=== PATIENT | male | born 1985 | race Asian ===

== ENCOUNTER 2017-08-08 00:20 | Emergency (ER) | payer OTHER ==
[2017-08-08 00:40] VITALS: BP 131/88; PULSE 128; TEMP 97.8; BMI 66.9
[2017-08-08] MEDS ORDERED: SODIUM CHLORIDE 0.9% 1000 ML INFUS.BAG IV ONE (01:18)
--- NOTE | 2017-08-08 01:23 | PDOC ---
History of Present Illness - General History Source: Patient Exam Limitations: No Limitations - History of Present Illness Initial Comments: 08/08/17 01:32 The patient is a 31 year old male with history of asthma, cigarette smoking, who presents to the ED complaining of palpitations that began the night of ED arrival. He reports he has been drinking alcohol and snorting cocaine through the weekend. He admits to snorting cocaine prior to the onset of his symptoms. He reports his palpitations are resolving on ED evalulation. No chest pain or shortness of breath. No headache, visual changes, or numbness/tingling. <Eym Bishop - Last Filed: 08/08/17 01:32> <Bushra Eugene - Last Filed: 08/08/17 05:52> - General Chief Complaint: Palpitations Stated Complaint: ELEVATED HEARTRATE Time Seen by Provider: 08/08/17 00:40 Past History <Emy Bishop - Last Filed: 08/08/17 01:32> - Past Medical History Asthma: Yes COPD: No - Suicide/Smoking/Psychosocial Hx Smoking History: Current every day smoker Number of Cigarettes Smoked Daily: 20 Information on smoking cessation initiated: No Drug/Substance Use Hx: Yes <Bushra Eugene - Last Filed: 08/08/17 05:52> - Past Medical History Allergies/Adverse Reactions: Allergies Allergy/AdvReac Type Severity Reaction Status Date / Time No Known Allergies Allergy Verified 08/08/17 00:31 Home Medications: Ambulatory Orders NK [No Known Home Medication] 08/08/17 Review of Systems - Review of Systems Able to Perform ROS?: Yes Comments:: 08/08/17 01:35 GENERAL/CONSTITUTIONAL: No fever or chills. No weakness. HEAD, EYES, EARS, NOSE AND THROAT: No change in vision. No ear pain or discharge. No sore throat. CARDIOVASCULAR: +Palpitations (resolving). No chest pain or shortness of breath. No peripheral edema. RESPIRATORY: No cough, wheezing, or hemoptysis. GASTROINTESTINAL: No nausea, vomiting, diarrhea or constipation. GENITOURINARY: No dysuria, frequency, or change in urination. MUSCULOSKELETAL: No joint or muscle swelling or pain. No neck or back pain. SKIN: No rash NEUROLOGIC: No headache, vertigo, loss of consciousness, or change in strength/ sensation. ENDOCRINE: No increased thirst. No abnormal weight change. HEMATOLOGIC/LYMPHATIC: No anemia, easy bleeding, or history of blood clots. ALLERGIC/IMMUNOLOGIC: No hives or skin allergy. <Emy Bishop - Last Filed: 08/08/17 01:32> *Physical Exam - Vital Signs Last Vital Signs Temp Pulse Resp BP Pulse Ox 97.8 F 128 H 20 131/88 99 08/08/17 00:28 08/08/17 00:28 08/08/17 00:28 08/08/17 00:28 08/08/17 00:28 - Physical Exam Comments: 08/08/17 01:36 GENERAL: Awake, alert, and fully oriented, in no acute distress HEAD: No signs of trauma EYES: PERRLA, EOMI, sclera anicteric, conjunctiva clear ENT: Auricles normal inspection, hearing grossly normal, nares patent, oropharynx clear without exudates. Moist mucosa NECK: Normal ROM, supple, no lymphadenopathy, JVD, or masses LUNGS: +B/l wheezing. HEART: Regular rate and rhythm, normal S1 and S2, no murmurs, rubs or gallops ABDOMEN: Soft, nontender, normoactive bowel sounds. No guarding, no rebound. No masses EXTREMITIES: Normal range of motion, no edema. No clubbing or cyanosis. No cords, erythema, or tenderness NEUROLOGICAL: Cranial nerves II through XII grossly intact. Normal speech, normal gait SKIN: Warm, Dry, normal turgor, no rashes or lesions noted. <Emy Bishop - Last Filed: 08/08/17 01:32> - Vital Signs Last Vital Signs Temp Pulse Resp BP Pulse Ox 97.8 F 128 H 20 131/88 99 08/08/17 00:28 08/08/17 00:28 08/08/17 00:28 08/08/17 00:28 08/08/17 00:28 <Bushra Eugene - Last Filed: 08/08/17 05:52> ED Treatment Course - LABORATORY CBC & Chemistry Diagram: 08/08/17 02:12 08/08/17 02:12 <Bushra Eugene - Last Filed: 08/08/17 05:52> Medical Decision Making - Medical Decision Making 08/08/17 05:51 Pt comes with a funny feling in his chest. For the last 2 days he has been partying with friends, drinking alcohol and snorting cocaine. he stated thast he has only done this twice in his life, and he is neither alcoholic nor drug user. Pt states that he has no chest pain and that he called his dad and asked him to drive him to the ER so he could be checked out. Pt was hydrated in the ER. EKG is normal. Vitals normal. He has normal labs and he will be discharged home. <Bushra Eugene - Last Filed: 08/08/17 05:52> *DC/Admit/Observation/Transfer - Attestations Scribe Attestion: 08/08/17 01:36 Documentation prepared by Emy Bishop, acting as medical record transcriber for Bushra Eugene MD. <Emy Bishop - Last Filed: 08/08/17 01:32> - Discharge Dispostion Admit: No <Bushra Eugene - Last Filed: 08/08/17 05:52> Diagnosis at time of Disposition: Cocaine abuse, Alcohol abuse - Discharge Dispostion Disposition: HOME Condition at time of disposition: Stable - Referrals Referrals: Domingo Watkins MD [Primary Care Provider] - - Patient Instructions Printed Discharge Instructions: Drug Abuse and Drug Addiction - Post Discharge Activity
[2017-08-08] MEDS ORDERED: ALBUTEROL SO4 2.5/IPRATROPIUM 0.5 INH SOL 3 ML VIAL.NEB. NEB ONE ×2 (01:38→01:59)
[2017-08-08 02:55] LABS: ALBUMIN 4.6 g/dl (3.4-5.0); ANION GAP 11 (8-16); CALCIUM 8.7 mg/dL (8.5-10.1); CO2 27 mmol/L (21-32); CREATININE 0.7 mg/dL (0.7-1.3); GLUCOSE,RANDOM 126 mg/dL (74-106); SGOT/AST 21 U/L (15-37); SGPT/ALT 70 U/L (12-78); TOT PROT 8.6 g/dl (6.4-8.2)
[2017-08-08 02:57] LABS: ALK PHOS 78 U/L (45-117); CPK 194 IU/L (39-308); TROPONIN I < 0.02 ng/ml (0.00-0.05)
[2017-08-08 02:59] LABS: INR 1.13 (0.82-1.09); PROTHROMBIN TIME (PATIENT) 12.8 SEC (9.98-11.88)
--- NOTE | 2017-08-19 10:17 | EKG ---
Test Reason : Blood Pressure : / mmHG Vent. Rate : 094 BPM Atrial Rate : 094 BPM P-R Int : 118 ms QRS Dur : 086 ms QT Int : 364 ms P-R-T Axes : 035 049 046 degrees QTc Int : 455 ms NORMAL SINUS RHYTHM NORMAL ECG NO PREVIOUS ECGS AVAILABLE Confirmed by SYD WADSWORTH, AURA ([id number]) on 08/19/2017 10:17:13 AM Referred By: Confirmed By:AURA VELARDE MD
== END 2017-08-08 03:38 | disposition home or self-care (01) ==
LOC: JER 00:20
PROC: 3E0F7GC Introduction of Other Therapeutic Substance into Respiratory Tract, Via Natural or Artificial Opening (ICD-10-PCS; principal; 2017-08-08)
DX: F14.10 Cocaine abuse, uncomplicated (principal); F10.10 Alcohol abuse, uncomplicated; R00.2 Palpitations; J45.909 Unspecified asthma, uncomplicated; F17.210 Nicotine dependence, cigarettes, uncomplicated
CPT/HCPCS: 36415; 71020-TC; 80053; 80307; 82550; 82553; 84484; 85610; 85730; 93005; 93010; 94640; 99282-25

== ENCOUNTER 2017-10-10 10:29 | Emergency (ER) | payer OTHER ==
[2017-10-10] MEDS ORDERED: ACETAMINOPHEN 325 MG TABLET (FP) PO ONE (10:38)
[2017-10-10 10:47] VITALS: BP 143/87; PULSE 120; TEMP 101; BMI 30.7
[2017-10-10] MEDS ORDERED: ALBUTEROL SO4 2.5/IPRATROPIUM 0.5 INH SOL 3 ML VIAL.NEB. NEB ONE ×2 (11:32→11:33)
--- NOTE | 2017-10-10 11:54 | PDOC ---
History of Present Illness - General Chief Complaint: Cold Symptoms Stated Complaint: FEVER, COUGH Time Seen by Provider: 10/10/17 11:13 - History of Present Illness Initial Comments: 10/10/17 11:32 CHIEF COMPLAINT: fever and cough HISTORY OF PRESENT ILLNESS: 32 yo M with hx of asthma presents to [facility] with fever and cough since 2 days ago. Patient states "it's kind of making my asthma act up again but I'm using my inhaler so it's not terrible." Patient reports body aches and fatigue, denies vomiting and diarrhea. PAST MEDICAL HISTORY: Denies past medical history FAMILY HISTORY: Denies SOCIAL HISTORY: Denies tobacco, alcohol, illicit drug use. SURGICAL HISTORY: Denies ALLERGIES: No known drug allergies REVIEW OF SYSTEMS General/Constitutional: Fever, fatigue. Denies weakness, weight change. HEENT: Denies change in vision. Denies ear pain or discharge. Denies sore throat. Cardiovascular: Denies chest pain or shortness of breath. Respiratory: Cough and wheezing. Gastrointestinal: Denies nausea, vomiting, diarrhea. Genitourinary: Denies dysuria, frequency, or change in urination. Musculoskeletal: Denies joint or muscle swelling or pain. Denies neck or back pain. Skin and breasts: Denies rash or easy bruising. PHYSICAL EXAM General Appearance: Well-appearing, appropriately dressed. No apparent distress. HEENT: Rhinorrhea, congestion, post nasal drip. EOMI, PERRLA, normal voice, TMs melissa. No conjunctival pallor. No photophobia, scleral icterus. Neck: Supple. Trachea midline. No tenderness, rigidity, carotid bruit, stridor , lymphadenopathy, or thyromegaly. Respiratory/Chest: Bilateral inspiratory and expiratory wheezing. No shortness of breath, chest tenderness, respiratory distress, accessory muscle use. No crackles, rales, rhonchi, stridor, dullness. Cardiovascular: RRR. S1, S2. Gastrointestinal/Abdominal: Normal bowel sounds. Abdomen soft, non-distended. No tenderness or rebound tenderness. No organomegaly, pulsatile mass, guarding , hernia, hepatomegaly, splenomegaly. Musculoskeletal/Extremities: Normal inspection. FROM of all extremities, normal capillary refill. Pelvis Stable. No CVA tenderness. No tenderness to extremities, pedal edema, swelling, erythema or deformity. Integumentary: Appropriate color, dry, warm. 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 Fully oriented, alert. Appropriate mood/affect. Motor strength 5/5. No appreciable EOM palsy, facial droop or sensory deficit. 10/10/17 11:56 Past History - Past Medical History Allergies/Adverse Reactions: Allergies Allergy/AdvReac Type Severity Reaction Status Date / Time No Known Allergies Allergy Verified 10/10/17 10:37 Home Medications: Ambulatory Orders Oseltamivir Phosphate [Tamiflu] 75 mg PO BID #10 capsule 10/10/17 Asthma: Yes COPD: No - Suicide/Smoking/Psychosocial Hx Smoking History: Current every day smoker Number of Cigarettes Smoked Daily: 5 Information on smoking cessation initiated: Yes 'Breaking Loose' booklet given: 10/10/17 Hx Alcohol Use: Yes (SOCIAL) Drug/Substance Use Hx: No Substance Use Type: None *Physical Exam - Vital Signs Last Vital Signs Temp Pulse Resp BP Pulse Ox 101.0 F H 120 H 20 143/87 97 10/10/17 10:33 10/10/17 10:33 10/10/17 10:33 10/10/17 10:33 10/10/17 10:33 ED Treatment Course - Medications Given in the ED: ED Medications Discontinued Medications Generic Name Dose Route Start Last Admin Trade Name Marcell PRN Reason Stop Dose Admin Acetaminophen 650 mg 10/10/17 10:38 10/10/17 10:38 Tylenol - PO 10/10/17 10:39 650 mg NOW ONE Administration Medical Decision Making - Medical Decision Making 10/10/17 11:58 32 yo M with hx of asthma presents to [facility] with fever and cough since 2 days ago. -Duoneb -Flu swab 10/10/17 12:12 Patient reassessed, lungs CTAB at this time and patient reports feeling much better. Given symptoms, VS, hx of asthma and prevalence of flu, will rx Tamiflu. Advised patient to take medication as prescribed and follow up with PCP next week. Advised patient of signs and symptoms for return to ED. Patient verbalized understanding and agrees to plan. *DC/Admit/Observation/Transfer Diagnosis at time of Disposition: Flu - Discharge Dispostion Disposition: HOME Condition at time of disposition: Stable Admit: No - Prescriptions Prescriptions: Oseltamivir Phosphate [Tamiflu] 75 mg PO BID #10 capsule - Referrals Referrals: Domingo Watkins MD [Primary Care Provider] - - Patient Instructions Printed Discharge Instructions: Influenza Additional Instructions: Please take medications as prescribed. Take Motrin 3x a day as needed for flu/ bodyaches/fatigue. If you develop any severe shortness of breath unrelieved by your inhaler, chest pain, fever unrelieved by Motrin or Tylenol, persistent vomiting or diarrhea, or any new or worsening symptoms, please return to the ER. - Post Discharge Activity
== END 2017-10-10 12:34 | disposition home or self-care (01) ==
LOC: JER 10:29 → JERFT 10:29
PROC: 3E0F7GC Introduction of Other Therapeutic Substance into Respiratory Tract, Via Natural or Artificial Opening (ICD-10-PCS; principal; 2017-10-10)
DX: J11.1 Influenza due to unidentified influenza virus with other respiratory manifestations (principal); J45.909 Unspecified asthma, uncomplicated
CPT/HCPCS: 87804; 94640; 99281-25

== ENCOUNTER 2017-11-06 23:07 | Emergency (ER) | payer OTHER ==
[2017-11-06 23:30] VITALS: BP 135/93; TEMP 100.1; BMI 32.5
[2017-11-07] MEDS ORDERED: IBUPROFEN 400 MG TABLET (FP) PO ONE ×2 (00:07→00:12)
[2017-11-07] MEDS ORDERED: ALBUTEROL SO4 0.083% IH SOL 2.5 MG/3 ML VIAL.NEB. NEB ONE ×2 (00:07→00:12)
--- NOTE | 2017-11-07 00:13 | PDOC ---
History of Present Illness <Sotero Brandt - Last Filed: 11/07/17 00:57> - General History Source: Patient Exam Limitations: No Limitations - History of Present Illness Initial Comments: 11/07/17 07:05 Patient is a 32 year old male with a significant past medical history of Asthma , who presents to the ED with complaints of flu like symptoms that began yesterday. Patient reports experiencing sudden onset of flu like symptoms yesterday afternoon. He reports experiencing subjective fever, general body aches and slight cough. Patient reports having no sick contacts at home but states all of his coworkers are showing flu like symptoms. Patient reports experiencing similar symptoms 3 weeks ago and was tested negative for flu but was given Tamiflu and states his symptoms relieved in 2 days. He reports taking tylenol and motrin with no relief. Denies chest pain. Sob. Denies nausea, vomiting. Denies abdominal pain, constipation, diarrhea. Denies dysuria, hematuria. Denies any other symptoms. Allergies: None Social history: Former smoker. No alcohol. No illicit drugs. Surgical history: None PMD: Dr. Domingo Watkins <Deandre Ruiz - Last Filed: 11/07/17 07:06> - General Chief Complaint: Cold Symptoms Stated Complaint: COLD SYMPTOMS Time Seen by Provider: 11/06/17 23:47 Past History - Past Medical History Asthma: Yes COPD: No - Suicide/Smoking/Psychosocial Hx Smoking History: Never smoked Have you smoked in the past 12 months: No Number of Cigarettes Smoked Daily: 20 Information on smoking cessation initiated: No 'Breaking Loose' booklet given: 10/10/17 Hx Alcohol Use: No Drug/Substance Use Hx: No Substance Use Type: None <Sotero Brandt - Last Filed: 11/07/17 00:57> <Deandre Ruiz - Last Filed: 11/07/17 07:06> - Past Medical History Allergies/Adverse Reactions: Allergies Allergy/AdvReac Type Severity Reaction Status Date / Time No Known Allergies Allergy Verified 11/06/17 23:28 Review of Systems - Review of Systems Able to Perform ROS?: Yes Comments:: 11/07/17 07:06 CONSTITUTIONAL: +Fever. +General body aches. No reported: Chills, Diaphoresis, Generalized Weakness, Malaise, Loss of Appetite HEENT: No reported: Rhinorrhea, Nasal Congestion, Throat Pain, Throat Swelling, Difficulty Swallowing, Mouth Swelling, Ear Pain, Eye Pain, Visual Changes CARDIOVASCULAR: No reported: Chest Pain, Syncope, Palpitations, Irregular Heart Rate, Lightheadedness, Peripheral Edema RESPIRATORY: +Cough No reported: Cough, Shortness of Breath, SOB with Exertion, Orthopnea, Wheezing , Stridor, Hemoptysis GASTROINTESTINAL: +Abdominal pain. No reported: Abdominal Distension, Nausea, Vomiting, Diarrhea, Constipation, Melena, Hematochezia GENITOURINARY: No reported: Dysuria, Frequency, Urgency, Hesitancy, Flank Pain, Genital Pain MUSCULOSKELETAL: No reported: Myalgia, Arthralgia, Joint Swelling, Back pain, Neck Pain SKIN: No reported: Rash, Itching, Pallor HEMATOLOGIC/IMMUNOLOGIC: No reported: Easy Bleeding, Easy Bruising, Lymphadenopathy, Frequent infections ENDOCRINE: No reported: Unexplained Weight Gain, Unexplained Weight Loss, Heat Intolerance , Cold Intolerance NEUROLOGIC: No reported: Headache, Focal Weakness, Paresthesias, Vertigo, Lightheadedness, Unsteady Gait, Seizure, Mental Status Changes, Incontinence PSYCHIATRIC: No reported: Anxiety, Depression <Deandre Ruiz - Last Filed: 11/07/17 07:06> *Physical Exam - Vital Signs Last Vital Signs Temp Pulse Resp BP Pulse Ox 100.1 F H 125 H 20 135/93 97 11/06/17 23:28 11/06/17 23:28 11/06/17 23:28 11/06/17 23:28 11/06/17 23:28 <Sotero Brandt - Last Filed: 11/07/17 00:57> - Vital Signs Last Vital Signs Temp Pulse Resp BP Pulse Ox 100.1 F H 103 H 18 135/93 97 11/06/17 23:28 11/07/17 00:58 11/07/17 00:58 11/06/17 23:28 11/07/17 00:58 - Physical Exam Comments: 11/07/17 07:06 GENERAL: +Hot to touch The patient is awake, alert, and fully oriented, Nontoxic - in no acute distress. HEAD: Normocephalic, atraumatic. EYES: extraocular movements intact, sclera anicteric, conjunctiva clear. ENT: Normal voice, Moist mucous membranes. NECK: Normal range of motion, No JVD LUNGS: +Scattered wheezing bilaterally. Breath sounds equal. No rhonchi, no rales. HEART: Regular rate and rhythm, normal S1 and S2 without murmur, rub or gallop. ABDOMEN: Soft, nontender, normoactive bowel sounds. No guarding, no rebound. No masses. No CVA tenderness EXTREMITIES: Normal range of motion, no edema. No clubbing or cyanosis. No cords , erythema, or tenderness. NEUROLOGICAL: No facial asymmetry, Normal speech, normal gait. PSYCH: Normal mood, normal affect. SKIN: Warm, Dry, normal turgor. <Deandre Ruiz - Last Filed: 11/07/17 07:06> ED Treatment Course - Medications Given in the ED: ED Medications Discontinued Medications Generic Name Dose Route Start Last Admin Trade Name Freq PRN Reason Stop Dose Admin Albuterol Sulfate 1 amp 11/07/17 00:07 11/07/17 00:24 Ventolin 0.083% Nebulizer Soln - NEB 11/07/17 00:08 1 amp ONCE ONE Administration Ibuprofen 800 mg 11/07/17 00:07 11/07/17 00:24 Motrin - PO 11/07/17 00:08 800 mg ONCE ONE Administration <Deandre Ruiz - Last Filed: 11/07/17 07:06> Medical Decision Making - Medical Decision Making 11/07/17 00:08 32y M no pmhx presents with complaint of fever, cough, body aches, congestion x 2 days. pt did have similar syndrome last month and was treated with course of tamiflu with improvement of sypmtoms. +sick contacts pulm exam noted for scattered wheezing suspect flu/viral syndrome will give motrin, will give nebs A portion of this note was documented by scribe services under my direction. I have reviewed the details of the note, within reason, and agree with the documentation with the following case summary and management plan written by me 11/07/17 00:57 HR significantly improved to 100 pt feeling better will dc with supportive care at home I discussed the physical exam findings, ancillary test results and final diagnoses with the patient. I answered all of the patient's questions. The patient was satisfied with the care received and felt comfortable with the discharge plan and treatment plan. The patient will call their primary care physician within 24 hours to arrange follow-up and will return to the Emergency Department with any new, persistent or worsening symptoms. <Sotero Brandt - Last Filed: 11/07/17 00:57> *DC/Admit/Observation/Transfer - Discharge Dispostion Admit: No <Sotero Brandt - Last Filed: 11/07/17 00:57> - Attestations Scribe Attestion: 11/07/17 07:06 Documentation prepared by Deandre Ruiz, acting as medical social worker for Sotero Brandt MD, /DO. <Deandre Ruiz - Last Filed: 11/07/17 07:06> Diagnosis at time of Disposition: Influenza-like illness - Discharge Dispostion Disposition: HOME Condition at time of disposition: Improved - Referrals Referrals: Domingo Watkins MD [Primary Care Provider] - - Patient Instructions Printed Discharge Instructions: DI for Influenza -- Adult Additional Instructions: Return to the emergency department immediately with ANY new, persistent or worsening symptoms. Take tylenol or motrin for any body aches/fever. Make sure to drink plenty of fluids You MUST call and follow up with your doctor tomorrow for further evaluation of yur symptoms. Results were discussed with you. Please make sure your doctor reviews the results of your emergency evaluation.
[2017-11-07 00:59] VITALS: PULSE 103
== END 2017-11-07 01:08 | disposition home or self-care (01) ==
LOC: JER 23:07
PROC: 3E0F7GC Introduction of Other Therapeutic Substance into Respiratory Tract, Via Natural or Artificial Opening (ICD-10-PCS; principal; 2017-11-06)
DX: J11.1 Influenza due to unidentified influenza virus with other respiratory manifestations (principal); J45.909 Unspecified asthma, uncomplicated
CPT/HCPCS: 94640; 99281-25

== ENCOUNTER 2018-08-10 19:03 | Emergency (ER) | payer OTHER ==
--- NOTE | 2018-08-10 19:21 | PDOC ---
Rapid Medical Evaluation Time Seen by Provider: 08/10/18 19:20 Medical Evaluation: Allergies Allergy/AdvReac Type Severity Reaction Status Date / Time No Known Allergies Allergy Verified 11/06/17 23:28 I have performed a brief in-person evaluation of this patient. The patient presents with a chief complaint of: lump on testicle that is bleeding Pertinent physical exam findings: none I have ordered the following: nothing The patient will proceed to the ED for further evaluation. Discharge Disposition - Diagnosis Testicle lump - Referrals Referrals: Domingo Watkins MD [Primary Care Provider] - - Patient Instructions - Post Discharge Activity
[2018-08-10 19:24] VITALS: BP 145/91; PULSE 85; TEMP 99.1; BMI 33.1
--- NOTE | 2018-08-10 20:44 | PDOC ---
History of Present Illness - General Chief Complaint: Injury Stated Complaint: BLEEDING Time Seen by Provider: 08/10/18 19:20 - History of Present Illness Initial Comments: 08/10/18 20:41 32-year-old male without comorbidities presents for evaluation of scrotal bleeding. He states he was in the shower felt a small pimple-like projection coming from his left scrotum he squeezed it and it began to bleed and he could not the bleeding to stop. Past History - Past Medical History Allergies/Adverse Reactions: Allergies Allergy/AdvReac Type Severity Reaction Status Date / Time No Known Allergies Allergy Verified 11/06/17 23:28 Home Medications: Ambulatory Orders NK [No Known Home Medication] 08/10/18 Asthma: Yes COPD: No - Suicide/Smoking/Psychosocial Hx Smoking History: Current every day smoker Have you smoked in the past 12 months: Yes Number of Cigarettes Smoked Daily: 20 Information on smoking cessation initiated: No 'Breaking Loose' booklet given: 10/10/17 Hx Alcohol Use: No Drug/Substance Use Hx: No Substance Use Type: None Review of Systems - Review of Systems : Yes: See HPI *Physical Exam - Vital Signs Last Vital Signs Temp Pulse Resp BP Pulse Ox 99.1 F 85 17 145/91 100 08/10/18 19:22 08/10/18 19:22 08/10/18 19:22 08/10/18 19:22 08/10/18 19:22 - Physical Exam Comments: 08/10/18 20:42 External genitalia is normal. There is a small focal area of bleeding without surrounding erythema induration warmth or tenderness. The area of bleeding is nontender. Medical Decision Making - Medical Decision Making 08/10/18 20:42 The area was cleaned with normal saline and dried a dry sterile dressing was placed. Bleeding stopped with gentle pressure *DC/Admit/Observation/Transfer Diagnosis at time of Disposition: Scrotal bleeding Diagnosis at time of Disposition: (Ruled Out): Testicle lump - Discharge Dispostion Disposition: HOME Condition at time of disposition: Stable Decision to Admit order: No - Referrals Referrals: Domingo Watkins MD [Primary Care Provider] - Cesario Rodriguez MD., MD [Staff Physician] - - Patient Instructions Additional Instructions: Return to the emergency room should symptoms worsen or return. If this occurs again please use sterile gauze and direct pressure for no less than 5 minutes before removing the cause. Follow-up with urology and one day for further evaluation and treatment options. Again return to the emergency room should you require further attention - Post Discharge Activity
== END 2018-08-10 21:15 | disposition home or self-care (01) ==
LOC: JERFT 19:03 → JER 19:03 → JERFT 21:15
DX: N50.1 Vascular disorders of male genital organs (principal)
CPT/HCPCS: 99281-25

== ENCOUNTER 2019-01-25 23:13 | Emergency (ER) | payer OTHER ==
[2019-01-25 23:17] VITALS: BP 135/95; PULSE 127; TEMP 100.4; BMI 33.5
[2019-01-25] MEDS ORDERED: ALBUTEROL SO4 2.5/IPRATROPIUM 0.5 INH SOL 3 ML VIAL.NEB. NEB ONE ×2 (23:19→23:23)
--- NOTE | 2019-01-26 01:39 | PDOC ---
History of Present Illness - General Chief Complaint: Asthma Stated Complaint: ASTHMA Time Seen by Provider: 01/26/19 01:39 Exam Limitations: No Limitations - History of Present Illness Initial Comments: 01/26/19 01:47 33-year-old male with a history of asthma complaining of several days of worsening cough and wheezing now with low-grade fevers stating he thinks that he has bronchitis. He has had some colored sputum. He does admit to smoking non- cigarette smoking devices. There is no reported history of vomiting chest pain or trauma. He uses a steroid inhaler for maintenance and rescue bronchodilator as well. These have not been helpful. Past History - Past Medical History Allergies/Adverse Reactions: Allergies Allergy/AdvReac Type Severity Reaction Status Date / Time No Known Allergies Allergy Verified 01/25/19 23:15 Home Medications: Ambulatory Orders NK [No Known Home Medication] 08/10/18 Asthma: Yes COPD: No - Suicide/Smoking/Psychosocial Hx Smoking History: Current every day smoker Have you smoked in the past 12 months: Yes Number of Cigarettes Smoked Daily: 4 Information on smoking cessation initiated: No 'Breaking Loose' booklet given: 10/10/17 Hx Alcohol Use: No Drug/Substance Use Hx: No Substance Use Type: None Review of Systems - Review of Systems Able to Perform ROS?: Yes Constitutional: Yes: Fever, Malaise HEENTM: Yes: Nose Congestion Respiratory: Yes: See HPI, Cough, Shortness of Breath, Wheezing, Productive cough Cardiac (ROS): No: Symptoms Reported, See HPI, Chest Pain, Edema, Irregular Heart Rate, Lightheadedness, Palpitations, Syncope, Chest Tightness, Other ABD/GI: No: Symptoms Reported, See HPI, Abdominal Distended, Abd. Pain w/ defecation, Blood Streaked Bowels, Constipated, Diarrhea, Difficulty Swallowing , Nausea, Poor Appetite, Poor Fluid Intake, Rectal Bleeding, Vomiting, Indigestion, Abdominal cramping, Tarry Stools, Other : No: Symptoms Reported, See HPI, Burning, Dysuria, Discharge, Frequency, Flank Pain, Hematuria, Incontinence, Pain, Urgency, Testicular Mass, Testicular Swelling, Lesions, Testicular Pain, Other Musculoskeletal: No: Symptoms Reported, See HPI, Back Pain, Gout, Joint Pain, Joint Swelling, Muscle Pain, Muscle Weakness, Neck Pain, Joint Stiffness, Other Integumentary: No: Symptoms Reported, See HPI, Bruising, Change in Color, Change in Hair/Nails, Dryness, Erythema, Flushing, Lesions, Lumps, Pallor, Pruritus, Rash, Sweating, Other Neurological: No: Symptoms reported, See HPI, Headache, Numbness, Paresthesia, Pre-Existing Deficit, Seizure, Tingling, Tremors, Weakness, Unsteady Gait, Ataxia, Dizziness, Other *Physical Exam - Vital Signs Last Vital Signs Temp Pulse Resp BP Pulse Ox 100.4 F H 127 H 28 H 135/95 98 01/25/19 23:15 01/25/19 23:15 01/25/19 23:15 01/25/19 23:15 01/25/19 23:15 - Physical Exam Comments: 01/26/19 01:49 GENERAL: Awake, in no acute distress HEAD: No signs of trauma EYES: PERRLA, EOMI, sclera anicteric, conjunctiva clear, visual acuity grossly intact ENT:mucous membranes moist NECK: Normal ROM, supple, no lymphadenopathy, JVD LUNGS: Diminished air entry bilaterally with prolonged expiratory phase and bilateral expiratory wheezing involving lower and mid lung mccall HEART: Regular rate and rhythm, normal S1 and S2, no murmurs, rubs or gallops ABDOMEN: Soft, nontender, normoactive bowel sounds. No guarding, Non- distended. : CHEST WALL: BACK: No midline tenderness. EXTREMITIES: Normal range of motion, no edema. No clubbing or cyanosis. No erythema, or tenderness NEUROLOGICAL: Alert, and fully oriented x4, Cranial nerves II through XII grossly intact. Normal speech, normal gait. SKIN: Warm, Dry, normal turgor, no rashes or lesions noted. 01/26/19 03:28 ED Treatment Course - Medications Given in the ED: ED Medications Discontinued Medications Generic Name Dose Route Start Last Admin Trade Name Freq PRN Reason Stop Dose Admin Albuterol/Ipratropium 1 amp 01/25/19 23:23 01/25/19 23:23 Duoneb - NEB 01/25/19 23:24 1 amp NOW ONE Administration Medical Decision Making - Critical Care Time Total Critical Care Time (minutes): 35 Critical Care Statement: The care of this patient involved high complexity decision making to prevent further life threatening deterioration of the patient 's condition and/or to evaluate & treat vital organ system(s) failure or risk of failure. - Medical Decision Making 01/26/19 01:50 33-year-old male asthmatic with wheezing productive cough and low-grade fever Chest x-ray ordered as well as dexamethasone 10 mg IM pain and DuoNeb, 2 01/26/19 03:26 Chest x-ray shows no acute pulmonary disease Patient's wheezing is completely resolved on reevaluation at 3:25 AM after duo nebs 3 and dexamethasone 10 mg IM as stated above Plan for discharge with a Medrol Dosepak as well as azithromycin secondary to productive cough fever and smoking history *DC/Admit/Observation/Transfer Diagnosis at time of Disposition: Asthmatic bronchitis with acute exacerbation Qualifiers: Asthma severity: unspecified severity Asthma persistence: unspecified Qualified Code(s): J45.901 - Unspecified asthma with (acute) exacerbation - Discharge Dispostion Disposition: HOME Condition at time of disposition: Improved Decision to Admit order: No - Referrals Referrals: Domingo Watkins MD [Primary Care Provider] - - Patient Instructions Printed Discharge Instructions: Asthma -- Adult, Acute Bronchitis - Post Discharge Activity Forms/Work/School Notes: Back to Work - Attestations Physician Attestion: 01/26/19 03:27 I, Dr Danielle Mcmillan, attest that this document has been prepared under my direction and personally reviewed by me in its entirety. I further attest, that it accurately reflects all work, procedures and medical decision making performed by me.
[2019-01-26] MEDS ORDERED: DEXAMETHASONE SOD PHOSPHATE 10 MG/1 ML VIAL IM ONE (01:43)
[2019-01-26] MEDS ORDERED: ALBUTEROL SO4 2.5/IPRATROPIUM 0.5 INH SOL 3 ML VIAL.NEB. NEB ONE ×3 (01:44→02:57)
[2019-01-26] MEDS ORDERED: DEXAMETHASONE SOD PHOSPHATE 10 MG/1 ML VIAL ONE (02:57)
== END 2019-01-26 04:01 | disposition home or self-care (01) ==
LOC: JER 23:13
PROC: 3E0233Z Introduction of Anti-inflammatory into Muscle, Percutaneous Approach (ICD-10-PCS; principal; 2019-01-25)
PROC: 3E0F7GC Introduction of Other Therapeutic Substance into Respiratory Tract, Via Natural or Artificial Opening (ICD-10-PCS; 2019-01-25)
PROC: 3E0F7GC Introduction of Other Therapeutic Substance into Respiratory Tract, Via Natural or Artificial Opening (ICD-10-PCS; 2019-01-25)
PROC: 3E0F7GC Introduction of Other Therapeutic Substance into Respiratory Tract, Via Natural or Artificial Opening (ICD-10-PCS; 2019-01-25)
DX: J45.901 Unspecified asthma with (acute) exacerbation (principal)
CPT/HCPCS: 71046-TC-FY; 94640; 96372; 99281-25; J1100

== ENCOUNTER 2022-10-06 10:04 | Emergency (ER) | payer OTHER ==
[2022-10-06 11:02] VITALS: BP 121/78; RESP 18; BMI 34.4
[2022-10-06] MEDS ORDERED: ACETAMINOPHEN 500 MG TABLET (FP) PO ONE (11:19)
[2022-10-06] MEDS ORDERED: IBUPROFEN 600 MG TABLET (FP) PO ONE ×2 (11:19→11:22)
[2022-10-06] MEDS ORDERED: ACETAMINOPHEN 500 MG TABLET (FP) ONE (11:22)
[2022-10-06] MEDS ORDERED: DEXAMETHASONE LIQUID 0.5 MG/5 ML PO ONE (11:46)
[2022-10-06] MEDS ORDERED: ALBUTEROL SO4 2.5/IPRATROPIUM 0.5 INH SOL 3 ML VIAL.NEB. NEB ONE (13:10)
[2022-10-06] MEDS: ALBUTEROL SO4 2.5/IPRATROPIUM 0.5 INH SOL 3 ML VIAL.NEB. NEB SCH (13:10)
[2022-10-06] MEDS ORDERED: DEXAMETHASONE SOD PHOSPHATE 10 MG/1 ML VIAL ONE (13:10)
[2022-10-06 14:14] VITALS: PULSE 97; TEMP 97.7
== END 2022-10-06 14:14 | disposition home or self-care (01) ==
LOC: JER 10:04
PROC: 3E0F7GC Introduction of Other Therapeutic Substance into Respiratory Tract, Via Natural or Artificial Opening (ICD-10-PCS; principal; 2022-10-06)
DX: J45.21 Mild intermittent asthma with (acute) exacerbation (principal)
CPT/HCPCS: 0241U-QW; 71046-TC-FY; 99284-25

== ENCOUNTER 2023-02-22 13:46 | Emergency (ER) | payer OTHER ==
[2023-02-22 13:50] VITALS: BMI 34.4
[2023-02-22] MEDS ORDERED: ALBUTEROL SO4 2.5/IPRATROPIUM 0.5 INH SOL 3 ML VIAL.NEB. NEB ONE ×2 (15:01→15:25)
[2023-02-22] MEDS ORDERED: IBUPROFEN 600 MG TABLET (FP) PO ONE (15:01)
[2023-02-22] MEDS ORDERED: ACETAMINOPHEN 500 MG TABLET (FP) PO ONE (15:01)
[2023-02-22] MEDS ORDERED: SODIUM CHLORIDE 1,000 ML IV STA (15:19)
[2023-02-22] MEDS ORDERED: ACETAMINOPHEN 1000 MG/100 ML BAG IVPB ONE (15:19)
[2023-02-22] MEDS ORDERED: KETOROLAC TROMETHAMINE 30 MG/1 ML VIAL IVPUSH ONE (15:20)
[2023-02-22] MEDS ORDERED: KETOROLAC TROMETHAMINE 30 MG/1 ML VIAL ONE (15:25)
[2023-02-22] MEDS ORDERED: ACETAMINOPHEN INJECTION 100 ML IVPB ONE (15:25)
[2023-02-22 16:11] LABS: BASO % 0.4 % (0-2.0); EOS % 3.7 % (0-4.5); HEMATOCRIT 48.1 % (35.4-49); HEMOGLOBIN 16.4 GM/dL (11.7-16.9); LYMPH % 26.6 % (8-40); MCH 29.5 pg (25.7-33.7); MEAN CELL VOLUME 86.7 fl (80-96); MEAN PLT VOLUME 7.3 fl (7.5-11.1); MONO % 8.3 % (3.8-10.2); PLATELET COUNT 280 10^3/uL (134-434); RBC 5.55 M/mm3 (4.00-5.60); RDW 14.1 % (11.9-15.9); WHITE BLOOD COUNT 9.3 K/mm3 (4.0-10.0)
[2023-02-22 16:29] LABS: POTASSIUM 4.3 mmol/L (3.5-5.1)
[2023-02-22 16:32] LABS: CALCIUM 9.4 mg/dL (8.5-10.1)
[2023-02-22 16:33] LABS: BLOOD UREA NITROGEN 9.1 mg/dL (7-18)
[2023-02-22 16:36] LABS: CREATININE 0.8 mg/dL (0.55-1.3)
[2023-02-22 16:37] LABS: BILIRUBIN,TOTAL 1.2 mg/dL (0.2-1); TOT PROT 7.9 g/dl (6.4-8.2)
[2023-02-22 16:57] VITALS: BP 126/69; PULSE 92; RESP 20; TEMP 97.8
[2023-02-22] MEDS ORDERED: AMOX TR/POT CLAV 875MG/125MG TABLETS (FP) PO ONE (16:59)
[2023-02-22] MEDS ORDERED: AMOX TR/POT CLAV 875MG/125MG TABLETS (FP) ONE (17:04)
== END 2023-02-22 17:09 | disposition home or self-care (01) ==
LOC: JERFT 13:46
PROC: 3E033NZ Introduction of Analgesics, Hypnotics, Sedatives into Peripheral Vein, Percutaneous Approach (ICD-10-PCS; principal; 2023-02-22)
PROC: 3E0F7GC Introduction of Other Therapeutic Substance into Respiratory Tract, Via Natural or Artificial Opening (ICD-10-PCS; 2023-02-22)
PROC: 3E0333Z Introduction of Anti-inflammatory into Peripheral Vein, Percutaneous Approach (ICD-10-PCS; 2023-02-22)
PROC: 3E0337Z Introduction of Electrolytic and Water Balance Substance into Peripheral Vein, Percutaneous Approach (ICD-10-PCS; 2023-02-22)
DX: J18.9 Pneumonia, unspecified organism (principal); Z20.822 Contact with and (suspected) exposure to COVID-19
CPT/HCPCS: 0241U-QW; 36415; 71046-TC-FY; 80053; 85025; 99284-25

== ENCOUNTER 2023-03-31 02:43 | Emergency (ER) | payer OTHER ==
[2023-03-31 02:58] VITALS: BP 127/78; PULSE 83; RESP 18; TEMP 98.3; BMI 28.4
[2023-03-31] MEDS ORDERED: DEXAMETHASONE SOD PHOSPHATE 10 MG/1 ML VIAL IM ONE (04:13)
[2023-03-31] MEDS ORDERED: DEXAMETHASONE SOD PHOSPHATE 10 MG/1 ML VIAL ONE (04:15)
== END 2023-03-31 04:43 | disposition home or self-care (01) ==
LOC: JER 02:43
PROC: 3E023GC Introduction of Other Therapeutic Substance into Muscle, Percutaneous Approach (ICD-10-PCS; principal; 2023-03-31)
DX: R21 Rash and other nonspecific skin eruption (principal); B86 Scabies
CPT/HCPCS: 99284-25; J1100